=== PATIENT | male | born 1990 | race African-American/Black ===

== ENCOUNTER 2019-04-02 23:14 | Inpatient (IN) | payer OTHER ==
[2019-04-02 23:47] VITALS: BMI 21.3
--- NOTE | 2019-04-03 00:55 | HP ---
CIWA Score Nausea/Vomitin-Mild Nausea/No Vomiting Muscle Tremors: 3 Anxiety: 3 Agitation: 3 Paroxysmal Sweats: 3 Orientation: 0-Oriented Tacttile Disturbances: 0-None Auditory Disturbances: 0-None Visual Disturbances: 0-None Headache: 4-Moderately Severe CIWA-Ar Total Score: 17 - Admission Criteria OASAS Guidelines: Admission for Medically Managed Detox: Requires at least one of the followin. CIWA greater than 12 2. Seizures within the past 24 hours 3. Delirium tremens within the past 24 hours 4. Hallucinations within the past 24 hours 5. Acute intervention needed for co occurring medical disorder 6. Acute intervention needed for co occurring psychiatric disorder 7. Severe withdrawal that cannot be handled at a lower level of care (continued vomiting, continued diarrhea, abnormal vital signs) requiring intravenous medication and/or fluids 8. Admitting History and Physical - Smoking History Smoking history: Current every day smoker Have you smoked in the past 12 months: Yes Aproximately how many cigarettes per day: 20 - Alcohol/Substance Use Hx Alcohol Use: Yes Admission ROS [facility] Chief Complaint: Alcohol withdrawal symptoms Allergies/Adverse Reactions: Allergies Allergy/AdvReac Type Severity Reaction Status Date / Time No Known Allergies Allergy Verified 04/02/19 23:35 History of Present Illness: 28 years old male with a long history of alcohol dependence is seeking admission to detox. Patient has been in previous detox and reports insignificant period of sobriety. He is employed as a stock mover and denies suicidal ideation at this time. He denies medical history and reports psych. history of bipolar, schizophrenia, depression and anxiety. He reports blackouts from drinking, last incident was 3 weeks ago. Exam Limitations: No Limitations - Ebola screening Have you traveled outside of the country in the last 21 days: No (N) Have you had contact with anyone from an Ebola affected area: No Do you have a fever: No - Review of Systems Constitutional: Chills, Loss of Appetite, Malaise, Changes in sleep EENT: reports: Sinus Pressure Respiratory: reports: No Symptoms reported Cardiac: reports: No Symptoms Reported GI: reports: Constipated, Nausea, Poor Appetite, Poor Fluid Intake, Abdominal cramping : reports: No Symptoms Reported Musculoskeletal: reports: Back Pain Integumentary: reports: Dryness, Flushing Neuro: reports: Tremors Endocrine: reports: No Symptoms Reported Hematology: reports: No Symptoms Reported Psychiatric: reports: Anxious, Depressed Other Systems: Reviewed and Negative Patient History - Patient Medical History Hx Anemia: No Hx Asthma: No Hx Chronic Obstructive Pulmonary Disease (COPD): No Hx Cancer: No Hx Cardiac Disorders: No Hx Congestive Heart Failure: No Hx Hypertension: No Hx Hypercholesterolemia: No Hx Pacemaker: No HX Cerebrovascular Accident: No Hx Seizures: No Hx Dementia: No Hx Diabetes: No Hx Gastrointestinal Disorders: No Hx Liver Disease: No Hx Genitourinary Disorders: No Hx Sexually Transmitted Disorders: No Hx Renal Disease (ESRD): No Hx Thyroid Disease: No Hx Human Immunodeficiency Virus (HIV): No Hx Hepatitis C: No Hx Depression: Yes ( NOT ON MEDICATION) Hx Suicide Attempt: Yes (2005 [employer]. DENIES SUICIDAL IDEATION AT THIS TIME) Hx Bipolar Disorder: Yes (NOT ON MEDICATION) Hx Schizophrenia: Yes (NOT ON MEDICATION) Other Medical History: ANXIETY_ NOT ON MEDICATION - Patient Surgical History Past Surgical History: No Hx Neurologic Surgery: No Hx Cataract Extraction: No Hx Cardiac Surgery: No Hx Lung Surgery: No Hx Abdominal Surgery: No Hx Appendectomy: No Hx Cholecystectomy: No Hx Genitourinary Surgery: No Hx Orthopedic Surgery: No Anesthesia Reaction: No - PPD History Previous Implant?: Yes Documented Results: Negative w/proof Implanted On Prior R Admission?: Yes Date: 05/02/16 PPD to be Administered?: Yes - Reproductive History Patient is a Female of Child Bearing Age (11 -55 yrs old): No (davon sumner) - Smoking Cessation Smoking history: Current every day smoker Have you smoked in the past 12 months: Yes Aproximately how many cigarettes per day: 20 Cigars Per Day: 0 Hx Chewing Tobacco Use: No Initiated information on smoking cessation: Yes 'Breaking Loose' booklet given: 04/03/19 - Substance & Tx. History Hx Alcohol Use: Yes Hx Substance Use: Yes Substance Use Type: Alcohol, Marijuana Hx Substance Use Treatment: Yes ([facility], [facility], ) - Substances abused Alcohol Substance route: Oral Frequency: Daily Amount used: 1 pint denisse and nephew Age of first use: 13 Date of last use: 04/02/19 Admission Physical Exam BHS - Vital Signs Vital Signs: Vital Signs - 24 hr 04/02/19 23:37 Temperature 97.0 F L Pulse Rate 102 H Respiratory 20 Rate Blood Pressure 163/99 - Physical General Appearance: Yes: Moderate Distress, Tremorous, Sweating, Anxious HEENTM: Yes: Within Normal Limits Respiratory: Yes: Within Normal Limits Neck: Yes: Supple Breast: Yes: Breast Exam Deferred Cardiology: Yes: Tachycardia Abdominal: Yes: Normal Bowel Sounds, Soft Genitourinary: Yes: Within Normal Limits Back: Yes: Normal Inspection Musculoskeletal: Yes: Back pain, Muscle Pain Extremities: Yes: Tremors Neurological: Yes: Alert, Normal Mood/Affect Integumentary: Yes: Warm Lymphatic: Yes: Within Normal Limits Cleared for Admission S - Detox or Rehab [facility] Level of Care: Medically Managed Detox Regimen/Protocol: Librium Claeared for Rehab Admission: No Urine Drug Screen - Test Device Lot number: [id number] Expiration date: 11/18/19 - Control Is test valid?: Yes - Results Drug screen NEGATIVE: No Urine drug screen results: THC-Marijuana Inpatient Rehab Admission - Rehab Decision to Admit Inpatient rehab admission?: No
[2019-04-03] MEDS ORDERED: MELATONIN 5 MG TABLETS PO PRN (02:33)
[2019-04-03] MEDS ORDERED: ACETAMINOPHEN 325 MG TABLET (FP) PO PRN ×2 (02:33)
[2019-04-03] MEDS ORDERED: MAG HYDROX/AL HYDROX/SIMETH 30 ML UNIT-DOSE CUP PO PRN (02:33)
[2019-04-03] MEDS ORDERED: MAGNESIUM HYDROX 2400MG/30ML ORAL SUSPENSION 30 ML CUP PO PRN (02:33)
[2019-04-03] MEDS ORDERED: chlordiazePOXIDE HCL 25 MG CAPSULE PO PRN (02:33)
[2019-04-03] MEDS ORDERED: MAGNESIUM CITRATE 300 ML BOTTLE PO PRN (02:33)
[2019-04-03] MEDS ORDERED: METHOCARBAMOL 500 MG TABLET PO PRN (02:33)
[2019-04-03] MEDS ORDERED: hydrOXYzine PAMOATE 25 MG CAPSULE (FP) PO PRN (02:33)
[2019-04-03] MEDS ORDERED: BISMUTH SUBSALICYLATE 524 MG/30 ML UD PO PRN (02:33)
[2019-04-03] MEDS ORDERED: IBUPROFEN 400 MG TABLET (FP) PO PRN (02:33)
[2019-04-03] MEDS ORDERED: MENTHOL/PHENOL 1 EACH UD MM PRN (02:33)
[2019-04-03] MEDS: chlordiazePOXIDE HCL 25 MG CAPSULE PO SCH ×4 (06:13→22:13)
[2019-04-03] MEDS: PRENATAL VITAMINS W/ FOLIC ACID TABLET (FP) PO SCH (10:29)
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
--- NOTE | 2019-04-03 15:59 | PN ---
S CIWA - CIWA Score Nausea/Vomitin-No Nausea/No Vomiting Muscle Tremors: 3 Anxiety: 4-Mod. Anxious/Guarded Agitation: 2 Paroxysmal Sweats: No Perspiration Orientation: 0-Oriented Tacttile Disturbances: 2-Mild Itch/Numbness/Burn Auditory Disturbances: 0-None Visual Disturbances: 0-None Headache: 0-None Present CIWA-Ar Total Score: 11 BHS Progress Note (SOAP) Subjective: Tremors, Constipation, Anxiety. Patient reports that Withdrawal / Detox symptoms have subsided somewhat today in comparison to yesterday. Objective: PATIENT A & O X 3, OBSERVED AMBULATING ON DETOX UNIT UNASSISTED. IN NO ACUTE DISTRESS. 04/03/19 15:57 Vital Signs Temperature 98.5 F 04/03/19 13:34 Pulse Rate 81 04/03/19 13:34 Respiratory Rate 18 04/03/19 13:34 Blood Pressure 128/90 04/03/19 13:34 O2 Sat by Pulse Oximetry (%) RESULTS OF DETOX ADMISSION LABS PENDING. 04/03/19 15:58 Assessment: 04/03/19 15:58 WITHDRAWAL SYMPTOMS. Plan: CONTINUE DETOX. INCREASE DAILY PO WATER INTAKE. PRN MOM PO FOR CONSTIPATION.
[2019-04-03] MEDS: risperiDONE 1 MG TABLET (FP) PO SCH (22:13)
[2019-04-03] MEDS: THIAMINE HCL 100 MG TABLET (FP) PO SCH (22:13)
[2019-04-04] MEDS: chlordiazePOXIDE HCL 25 MG CAPSULE PO SCH ×2 (05:57→10:11)
--- NOTE | 2019-04-04 09:48 | EKG ---
Test Reason : Blood Pressure : / mmHG Vent. Rate : 072 BPM Atrial Rate : 072 BPM P-R Int : 148 ms QRS Dur : 100 ms QT Int : 386 ms P-R-T Axes : 042 060 029 degrees QTc Int : 422 ms NORMAL SINUS RHYTHM EARLY REPOLARIZATION NO PREVIOUS ECGS AVAILABLE Confirmed by KARIN ELENA MD ([id number]) on 04/04/2019 9:48:27 AM Referred By: Liliana Cortés Confirmed By:KARIN ELENA MD
[2019-04-04] MEDS: PRENATAL VITAMINS W/ FOLIC ACID TABLET (FP) PO SCH (10:09)
[2019-04-04] MEDS ORDERED: chlordiazePOXIDE HCL 10 MG CAPSULE PO PRN (10:27)
[2019-04-04 11:14] LABS: HEMATOCRIT 37.4 % (35.4-49); HEMOGLOBIN 13.3 GM/dL (11.7-16.9); MCH 35.2 pg (25.7-33.7); MCHC 35.5 g/dl (32.0-35.9); MEAN CELL VOLUME 99.1 fl (80-96); MEAN PLT VOLUME 8.4 fl (7.5-11.1); PLATELET COUNT 223 K/MM3 (134-434); RBC 3.77 M/mm3 (4.00-5.60); RDW 12.7 % (11.9-15.9); WHITE BLOOD COUNT 3.8 K/mm3 (4.0-10.0)
[2019-04-04 11:36] LABS: ALBUMIN 3.4 g/dl (3.4-5.0); BILIRUBIN,TOTAL 0.9 mg/dL (0.2-1); BLOOD UREA NITROGEN 8.8 mg/dL (7-18); CALCIUM 8.7 mg/dL (8.5-10.1); CREATININE 0.7 mg/dL (0.55-1.3); POTASSIUM 4.2 mmol/L (3.5-5.1); TOT PROT 6.7 g/dl (6.4-8.2)
--- NOTE | 2019-04-04 15:26 | PN ---
[facility] CIWA - CIWA Score Nausea/Vomitin-No Nausea/No Vomiting Muscle Tremors: None Anxiety: 3 Agitation: 3 Paroxysmal Sweats: No Perspiration Orientation: 0-Oriented Tacttile Disturbances: 0-None Auditory Disturbances: 0-None Visual Disturbances: 2-Mild Sensitivity Headache: 0-None Present CIWA-Ar Total Score: 8 BHS Progress Note (SOAP) Subjective: Constipation, Anxiety, Interrupted Sleep. Patient reports That Current withdrawal Detox Symptoms in General Are Gradually Beginning to Diminish in Severity. Objective: PATIENT A & O X 3, OBSERVED AMBULATING ON DETOX UNIT UNASSISTED. IN NO ACUTE DISTRESS. 04/04/19 15:22 Vital Signs Temperature 97.4 F L 04/04/19 13:31 Pulse Rate 62 04/04/19 13:31 Respiratory Rate 18 04/04/19 13:31 Blood Pressure 114/75 04/04/19 13:31 O2 Sat by Pulse Oximetry (%) Laboratory Tests 04/04/19 04/04/19 04/04/19 08:10 08:10 08:10 WBC 3.8 L RBC 3.77 L Hgb 13.3 Hct 37.4 MCV 99.1 H MCH 35.2 H D MCHC 35.5 RDW 12.7 Plt Count 223 D MPV 8.4 Sodium 142 Potassium 4.2 Chloride 108 H Carbon Dioxide 29 Anion Gap 5 L BUN 8.8 Creatinine 0.7 Est GFR (CKD-EPI)AfAm 148.85 Est GFR (CKD-EPI)NonAf 128.43 Random Glucose 72 L Calcium 8.7 Total Bilirubin 0.9 AST 23 ALT 28 Alkaline Phosphatase 60 Total Protein 6.7 Albumin 3.4 RPR Titer Nonreactive LABS NOTED. Assessment: 04/04/19 15:22 WITHDRAWAL SYMPTOMS. Plan: CONTINUE DETOX. PATIENT REPORTS THAT CURRENT WITHDRAWAL / DETOX SYMPTOMS ARE BEGINNING TO SUBSIDE AND THAT HE IS FEELING BETTER. AT PATIENT'S REQUEST, CURRENT DETOX MEDICATION REGIMEN MODIFIED SO THAT PATIENT MAY BE DISCHARGED ON , SO THAT HE MAY ATTEND TO PERSONAL MATTERS PRIOR TO PROCEEDING ON TO AFTERCARE PLAN.
--- NOTE | 2019-04-04 16:57 | PN ---
Psychiatric Progress Note Vital Signs: Vital Signs Period Temp Pulse Resp BP Sys/Quiroz Pulse Ox Last 24 Hr 96.9 F-97.5 F 51-69 18-18 104-116/59-80 Date of Session: 04/04/19 Chief Complaint:: " I'm not sleeping well." HPI: Patient admitted to for alcohol dependence. Patient reports difficulty sleeping. ROS: Patient is coherent, alert + oriented X3. Current Medications: Active Medications Generic Name Dose Route Start Last Admin Trade Name Freq PRN Reason Stop Dose Admin Acetaminophen 650 mg 04/03/19 02:33 Tylenol - PO Q6H PRN PAIN LEVEL 4 - 6 Acetaminophen 650 mg 04/03/19 02:33 Tylenol - PO Q6H PRN FEVER Al Hydroxide/Mg Hydroxide 30 ml 04/03/19 02:33 Mylanta Oral Suspension - PO Q6H PRN DYSPEPSIA Bismuth Subsalicylate 524 mg 04/03/19 02:33 Pepto-Bismol - PO Q1H PRN DIARRHEA Chlordiazepoxide HCl 10 mg 04/04/19 10:27 Librium - PO 04/05/19 10:24 Q4H PRN WITHDRAWAL(CONT SUBST) Chlordiazepoxide HCl 10 mg 04/04/19 17:00 Librium - PO 04/04/19 23:01 [id number]-FWO AKIKO Chlordiazepoxide HCl 10 mg 04/05/19 05:00 Librium - PO 04/05/19 17:01 Q12H AKIKO Chlordiazepoxide HCl 10 mg 04/06/19 05:00 Librium - PO 04/06/19 05:01 ONCE@0500 ONE Eucalyptus/Menthol/Phenol/Sorbitol 1 each 04/03/19 02:33 Cepastat Lozenge - MM 04/09/19 02:33 Q4H PRN SORE THROAT Hydroxyzine Pamoate 25 mg 04/03/19 02:33 04/03/19 03:25 Vistaril - PO 04/09/19 02:33 25 mg Q6H PRN Administration For Anxiety Ibuprofen 400 mg 04/03/19 02:33 Motrin - PO Q6H PRN PAIN LEVEL 1 - 3 Magnesium Citrate 300 ml 04/03/19 02:33 Citroma - PO Q48H PRN CONSTIPATION Magnesium Hydroxide 30 ml 04/03/19 02:33 04/03/19 10:29 Milk Of Magnesia - PO 30 ml PRN PRN Administration CONSTIPATION Melatonin 5 mg 04/03/19 02:33 Melatonin PO HS PRN INSOMNIA Methocarbamol 500 mg 04/03/19 02:33 04/03/19 03:25 Robaxin - PO 04/09/19 02:33 500 mg Q6H PRN Administration MUSCLE SPASMS Multivit/Folic Acid/Iron 1 tab 04/03/19 10:00 04/04/19 10:09 Vitamins (Sjr) - PO 1 tab DAILY AKIKO Administration Risperidone 1 mg 04/03/19 22:00 04/03/19 22:13 Risperdal - PO 1 mg HS AKIKO Administration Thiamine HCl 100 mg 04/03/19 22:00 04/03/19 22:13 Vitamin B1 - PO 100 mg HS AKIKO Administration Medication(s) Change(s): Yes. Current Side Effect: No Lab tests ordered: No Lab tests reviewed: Yes Provider note:: Patient reports difficulty sleeping. He reports taking remeron in the past. Patient is currently prescribed risperdal 1mg HS. Will order remeron 7.5mg HS. Patient also educated on the importance of sleep hygiene. Benefits and side effects discussed. Verbal consent given. Total face to face time:: 20 Mental Status Exam - Mental Status Exam Alert and Oriented to: Time, Place, Person Cognitive Function: Good Patient Appearance: Well Groomed Mood: Withdrawn Affect: Constricted Patient Behavior: Cooperative Speech Pattern: Appropriate Voice Loudness: Normal Thought Process: Goal Oriented Thought Disorder: Not Present Hallucinations: Denies Suicidal Ideation: Denies Homicidal Ideation: Denies Insight/Judgement: Poor Sleep: Poorly Appetite: Fair Muscle strength/Tone: Normal Gait/Station: Normal Psychiatric Treatment Plan - Problem List (1) Alcohol dependence with withdrawal Current Visit: Yes Qualifiers: Complication of substance-induced condition: uncomplicated Qualified Code(s ): F10.230 - Alcohol dependence with withdrawal, uncomplicated (2) Nicotine dependence Current Visit: Yes Qualifiers: Nicotine product type: cigarettes Substance use status: uncomplicated Qualified Code(s): F17.210 - Nicotine dependence, cigarettes, uncomplicated (3) Schizophrenia Current Visit: Yes Comment: Historical diagnosis. (4) Marijuana dependence Current Visit: Yes
[2019-04-04] MEDS: chlordiazePOXIDE HCL 10 MG CAPSULE PO SCH ×2 (17:32→22:32)
[2019-04-04] MEDS ORDERED: MIRTAZAPINE 15 MG TABLET (FP) PO SCH (22:00)
[2019-04-04] MEDS: risperiDONE 1 MG TABLET (FP) PO SCH (22:32)
[2019-04-04] MEDS: THIAMINE HCL 100 MG TABLET (FP) PO SCH (22:32)
[2019-04-05] MEDS ORDERED: chlordiazePOXIDE HCL 10 MG CAPSULE PO PRN
[2019-04-05] MEDS ORDERED: chlordiazePOXIDE HCL 10 MG CAPSULE PO SCH ×2 (05:00)
[2019-04-05] MEDS: PRENATAL VITAMINS W/ FOLIC ACID TABLET (FP) PO SCH (09:28)
[2019-04-05 09:39] VITALS: BP 101/54; PULSE 82; TEMP 96.9
--- NOTE | 2019-04-05 10:48 | PN ---
[facility] Progress Note Note: Patient is scheduled for discharge tomorrow. Scripts for 30 days supply of medications(Remeron 7.5 mg/hs, Risperdal 1 mg/hs) will be electronically transmitted to [facility] at [address] [place] [address]
--- NOTE | 2019-04-05 11:06 | PN ---
S CIWA - CIWA Score Nausea/Vomitin-No Nausea/No Vomiting Muscle Tremors: 2 Anxiety: 2 Agitation: 1-Slight > Activity Paroxysmal Sweats: No Perspiration Orientation: 0-Oriented Tacttile Disturbances: 0-None Auditory Disturbances: 0-None Visual Disturbances: 0-None Headache: 0-None Present CIWA-Ar Total Score: 5 S Progress Note (SOAP) Subjective: doing well with librium detox regimen less tremor aftercare [facility] Objective: 04/05/19 11:05 Vital Signs Temperature 96.9 F L 04/05/19 09:38 Pulse Rate 82 04/05/19 09:38 Respiratory Rate 18 04/05/19 09:38 Blood Pressure 101/54 L 04/05/19 09:38 O2 Sat by Pulse Oximetry (%) Laboratory Last Values WBC 3.8 K/mm3 (4.0-10.0) L 04/04/19 08:10 RBC 3.77 M/mm3 (4.00-5.60) L 04/04/19 08:10 Hgb 13.3 GM/dL (11.7-16.9) 04/04/19 08:10 Hct 37.4 % (35.4-49) 04/04/19 08:10 MCV 99.1 fl (80-96) H 04/04/19 08:10 MCH 35.2 pg (25.7-33.7) H D 04/04/19 08:10 MCHC 35.5 g/dl (32.0-35.9) 04/04/19 08:10 RDW 12.7 % (11.9-15.9) 04/04/19 08:10 Plt Count 223 K/MM3 (134-434) D 04/04/19 08:10 MPV 8.4 fl (7.5-11.1) 04/04/19 08:10 Sodium 142 mmol/L (136-145) 04/04/19 08:10 Potassium 4.2 mmol/L (3.5-5.1) 04/04/19 08:10 Chloride 108 mmol/L (98-107) H 04/04/19 08:10 Carbon Dioxide 29 mmol/L (21-32) 04/04/19 08:10 Anion Gap 5 MMOL/L (8-16) L 04/04/19 08:10 BUN 8.8 mg/dL (7-18) 04/04/19 08:10 Creatinine 0.7 mg/dL (0.55-1.3) 04/04/19 08:10 Est GFR (CKD-EPI)AfAm 148.85 04/04/19 08:10 Est GFR (CKD-EPI)NonAf 128.43 04/04/19 08:10 Random Glucose 72 mg/dL (74-106) L 04/04/19 08:10 Calcium 8.7 mg/dL (8.5-10.1) 04/04/19 08:10 Total Bilirubin 0.9 mg/dL (0.2-1) 04/04/19 08:10 AST 23 U/L (15-37) 04/04/19 08:10 ALT 28 U/L (13-61) 04/04/19 08:10 Alkaline Phosphatase 60 U/L (45-117) 04/04/19 08:10 Total Protein 6.7 g/dl (6.4-8.2) 04/04/19 08:10 Albumin 3.4 g/dl (3.4-5.0) 04/04/19 08:10 RPR Titer Nonreactive (NONREACTIVE) 04/04/19 08:10 lab noted Assessment: 04/05/19 11:06 alcohol withdrawal sx Plan: continue librium detox regimen
--- NOTE | 2019-04-05 13:48 | DS ---
[facility] Detox Discharge Summary Admission Date: 04/03/19 Discharge Date: 04/05/19 - History Present History: Alcohol Dependence Additional Comments: after lunch and nap feeling better call sister patient prefers to leave the detox today that sister pick him up in a few hours patient prefers to go to [facility] tomorrow and sister will bring him over to [facility] patient is alert oriented x 3 speech clearly coherently ambulating steady gait cardiac S1S2 RRR respiratory clear lung bilaterally on auscultation extremities full range of motion - Physical Exam Results Vital Signs: Vital Signs Temperature 96.9 F L 04/05/19 09:38 Pulse Rate 82 04/05/19 09:38 Respiratory Rate 18 04/05/19 09:38 Blood Pressure 101/54 L 04/05/19 09:38 O2 Sat by Pulse Oximetry (%) Pertinent Admission Physical Exam Findings: alcohol withdrawal sx Laboratory Last Values WBC 3.8 K/mm3 (4.0-10.0) L 04/04/19 08:10 RBC 3.77 M/mm3 (4.00-5.60) L 04/04/19 08:10 Hgb 13.3 GM/dL (11.7-16.9) 04/04/19 08:10 Hct 37.4 % (35.4-49) 04/04/19 08:10 MCV 99.1 fl (80-96) H 04/04/19 08:10 MCH 35.2 pg (25.7-33.7) H D 04/04/19 08:10 MCHC 35.5 g/dl (32.0-35.9) 04/04/19 08:10 RDW 12.7 % (11.9-15.9) 04/04/19 08:10 Plt Count 223 K/MM3 (134-434) D 04/04/19 08:10 MPV 8.4 fl (7.5-11.1) 04/04/19 08:10 Sodium 142 mmol/L (136-145) 04/04/19 08:10 Potassium 4.2 mmol/L (3.5-5.1) 04/04/19 08:10 Chloride 108 mmol/L (98-107) H 04/04/19 08:10 Carbon Dioxide 29 mmol/L (21-32) 04/04/19 08:10 Anion Gap 5 MMOL/L (8-16) L 04/04/19 08:10 BUN 8.8 mg/dL (7-18) 04/04/19 08:10 Creatinine 0.7 mg/dL (0.55-1.3) 04/04/19 08:10 Est GFR (CKD-EPI)AfAm 148.85 04/04/19 08:10 Est GFR (CKD-EPI)NonAf 128.43 04/04/19 08:10 Random Glucose 72 mg/dL (74-106) L 04/04/19 08:10 Calcium 8.7 mg/dL (8.5-10.1) 04/04/19 08:10 Total Bilirubin 0.9 mg/dL (0.2-1) 04/04/19 08:10 AST 23 U/L (15-37) 04/04/19 08:10 ALT 28 U/L (13-61) 04/04/19 08:10 Alkaline Phosphatase 60 U/L (45-117) 04/04/19 08:10 Total Protein 6.7 g/dl (6.4-8.2) 04/04/19 08:10 Albumin 3.4 g/dl (3.4-5.0) 04/04/19 08:10 RPR Titer Nonreactive (NONREACTIVE) 04/04/19 08:10 lab noted - Treatment Hospital Course: Detox Protocol Followed, Detoxed Safely, Responded well, Discharged Condition Good, Rehab Referral Accepted Patient has Accepted a Rehab Referral to: [facility] - Medication Discharge Medications: Ambulatory Orders Mirtazapine [Remeron -] 7.5 mg PO HS #14 tablet 04/05/19 Risperidone [Risperdal -] 1 mg PO HS #30 tablet 04/05/19 - Diagnosis (1) Alcohol dependence with withdrawal Status: Acute Qualifiers: Complication of substance-induced condition: uncomplicated Qualified Code(s ): F10.230 - Alcohol dependence with withdrawal, uncomplicated (2) Nicotine dependence Status: Acute Qualifiers: Nicotine product type: cigarettes Substance use status: in withdrawal Qualified Code(s): F17.213 - Nicotine dependence, cigarettes, with withdrawal (3) Substance induced mood disorder Status: Suspected - AMA Did Patient Leave Against Medical Advice: No CIWA Score - CIWA Score Nausea/Vomitin-No Nausea/No Vomiting Muscle Tremors: 1-None Visible, but [place] Anxiety: 1-Mildly Anxious Agitation: 0-Normal Activity Paroxysmal Sweats: No Perspiration Orientation: 0-Oriented Tacttile Disturbances: 0-None Auditory Disturbances: 0-None Visual Disturbances: 0-None Headache: 0-None Present CIWA-Ar Total Score: 2
[2019-04-06] MEDS ORDERED: chlordiazePOXIDE HCL 10 MG CAPSULE PO ONE (05:00)
[2019-04-06] MEDS ORDERED: chlordiazePOXIDE HCL 10 MG CAPSULE PO SCH (05:00)
[2019-04-07] MEDS ORDERED: chlordiazePOXIDE HCL 10 MG CAPSULE PO ONE (05:00)
== END 2019-04-05 12:46 | disposition home or self-care (01) | DRG 775 ==
LOC: YASAS 23:14 → Y3N 04-03 02:27
PROVIDERS: ADMIT Surgery; ATTEND Surgery
PROC: HZ2ZZZZ Detoxification Services for Substance Abuse Treatment (ICD-10-PCS; principal; 2019-04-03)
DX: F10.230 Alcohol dependence with withdrawal, uncomplicated (principal); F12.20 Cannabis dependence, uncomplicated; F17.213 Nicotine dependence, cigarettes, with withdrawal; F19.24 Other psychoactive substance dependence with psychoactive substance-induced mood disorder; R00.0 Tachycardia, unspecified; Z86.59 Personal history of other mental and behavioral disorders; Z91.5 Personal history of self-harm
CPT/HCPCS: 36415; 80053; 85027; 86593; 93005; 93010; J2794